=== PATIENT | female | born 1970 | race Caucasian/White ===

== ENCOUNTER → 2019-01-22 | Outpatient (CLI) | payer OTHER ==
--- NOTE | 2019-01-22 15:19 | RAD ---
Two-view right forearm study Clinical indications: Right forearm pain. FINDINGS: No right elbow joint effusion is seen. No acute fracture or dislocation or lytic process is evident. No radiopaque foreign body is evident. IMPRESSION: No acute osseous abnormality. Electronically signed by: Jackson Drake MD (01/22/2019 3:16 PM) [id number]
--- NOTE | 2019-01-22 16:15 | RAD ---
Three-view thoracic spine series INDICATIONS: Thoracic back pain. FINDINGS: No compression fracture or discitis or lytic process is evident. There is mild degenerative endplate spurring present. IMPRESSION: No acute compression fracture. Electronically signed by: Jackson Drake MD (01/22/2019 4:12 PM) [id number]
--- NOTE | 2019-01-22 16:16 | RAD ---
Two-view right humerus study Clinical indications: Right humerus pain. FINDINGS: No acute fracture or dislocation or lytic process is evident. No AC joint separation is evident. IMPRESSION: No acute fracture. Electronically signed by: Jackson Drake MD (01/22/2019 4:13 PM) [id number]
--- NOTE | 2019-01-22 16:18 | RAD ---
RIBS RIGHT History: Pain. Technique: 3 views right ribs. Comparison: None. Findings: No suspicious rib fractures. Normal alignment. Postoperative changes upper abdomen. No consolidation or pleural effusion. Impression: 1. No displaced rib fractures. Electronically signed by: Don Patel DO (01/22/2019 4:16 PM) [facility]
== END | disposition home or self-care (01) ==
LOC: PMG 09:49
PROVIDERS: ATTEND Registered Nurse
DX: M54.6 Pain in thoracic spine (principal); R07.81 Pleurodynia; M79.601 Pain in right arm; M25.531 Pain in right wrist; M25.511 Pain in right shoulder
CPT/HCPCS: 71100; 72072; 73060; 73090